=== PATIENT | male | born 1980 | race Caucasian/White ===

== ENCOUNTER 2017-09-16 11:11 | Emergency (ER) | payer OTHER ==
[~2017-09-16] VITALS: Ht 170.2 cm; Wt 86.2 kg
[~2017-09-16 11:11] MED LIST: ALBU90OI; ALBU90OI6 INH; ATEN25 PO; BUPR150ER PO; CEPH500 PO; CHLO25 PO; CLIN300 PO; CLON1 PO; CRUTCH4 USE; Cleocin HCl300 MG PO; DIVA500ER PO; ERYT.5TO OD; HYDACE5 PO; HYDHCL25 PO; IBUP800 PO; LEVSOD125 PO; LISI20 PO; Lisinopril2.5 MG; METPRE4DP PO; Norco 5-325 Ta1 EACH PO; OXYACE5T PO; PENVK500 PO; PRAZ1 PO; PROM25 PO; RXTRAM50 PO; SERT100 PO; SULTRIDS PO; TRAM50 PO; UNKNOWN THYROID MED; ZESTORETIC 20-121 EA; ZESTORETIC 20-121 EA PO
[2017-09-16 12:35] LABS: BASOPHILS ABSOLUTE AUTO 0.08 K/mm3 (0.00-0.23); BASOPHILS PERCENT AUTO 1 % (0-2); EOSINOPHILS ABSOLUTE AUTO 0.15 K/mm3 (0.00-0.68); EOSINOPHILS PERCENT AUTO 2 % (0-6); Hematocrit 47.2 % (37.0-53.0); Hemoglobin 16.3 g/dL (13.5-17.5); IMMATURE GRAN ABSOLUTE AUTO 0.04 K/mm3 (0.00-0.10); IMMATURE GRAN PERCENT AUTO 1 % (0-1); LYMPHOCYTES ABSOLUTE AUTO 1.28 K/mm3 (0.84-5.20); LYMPHOCYTES PERCENT AUTO 17 % (21-46); MONOCYTES ABSOLUTE AUTO 0.94 K/mm3 (0.16-1.47); MONOCYTES PERCENT AUTO 12 % (4-13); Mean Corpuscular HGB 32.2 pg (26.0-34.0); Mean Corpuscular HGB Conc 34.5 g/dL (31.5-36.5); Mean Corpuscular Volume 93 fL (80-100); Mean Platelet Volume 10.2 fL (9.1-12.4); NEUTROPHILS ABSOLUTE AUTO 5.23 K/mm3 (1.96-9.15); NEUTROPHILS PERCENT AUTO 68 % (41-73); Platelet Count 266 K/mm3 (150-400); RDW Coefficient Variation 12.3 % (11.7-14.2); RDW Standard Deviation 42.5 fL (35.1-46.3); Red Blood Cell Count 5.06 M/mm3 (4.30-5.90); White Blood Cell Count 7.72 K/mm3 (4.00-11.30)
[2017-09-16 12:50] LABS: Alanine Aminotransfer (ALT/SGP 62 U/L (12-78); Albumin, Blood 4.4 g/dL (3.4-5.0); Albumin/Globulin Ratio 1.2 (0.8-1.8); Alk Phos 99 U/L (50-136); Anion Gap 10 mmol/L (6-16); Aspartate Aminotrans (AST/SGOT 43 U/L (12-37); Bilirubin, Total 0.7 mg/dL (0.1-1.0); Blood Urea Nitrogen 8 mg/dL (8-24); Bun/Creatinine Ratio 12.2 (12.0-20.0); CO2, Blood 25 mmol/L (21-32); Calcium, Blood 9.3 mg/dL (8.5-10.1); Chloride, Blood 98 mmol/L (98-108); Creatinine, Blood 0.65 mg/dL (0.60-1.20); Ethanol (Alcohol), Blood, Med <3 mg/dL; Globulin, Blood 3.7 g/dL (2.2-4.0); Glomerular Filtration Rate >60 (60-); Glucose, Blood 99 mg/dL (70-99); Potassium, Blood 4.1 mmol/L (3.5-5.5); Sodium, Blood 133 mmol/L (136-145); Total Protein, Blood 8.1 g/dL (6.4-8.2)
[2017-09-16 13:13] LABS: Source, Urine Clean Catch
[2017-09-16 13:16] LABS: Appearance, Urine Clear (Clear); Blood, Urine Neg (Neg); Color, Urine Amber (P-Yellow); Glucose Qualitative, Urine Neg (Neg); Ketones, Urine 3+ (Neg); Leukocyte Esterase, Urine 1+ (Neg); Nitrite, Urine Neg (Neg); Protein, Urine Neg (Neg); Urobilinogen, Urine 2+ (Normal)
[2017-09-16 13:21] LABS: Bilirubin, Urine 1+ (Neg); Red Blood Cells, Urine 0-2 /hpf (0-2); Squamous Epithelial Cells Few /hpf (Few)
[2017-09-16 13:22] LABS: Bacteria Few /hpf
[2017-09-16] MEDS ORDERED: Klonopin1 MG PO (13:46)
== END 2017-09-16 14:12 | disposition home or self-care (01) ==
LOC: ER 11:11
PROVIDERS: Emergency Medicine
DX: S91.311D Laceration without foreign body, right foot, subsequent encounter (principal); F17.210 Nicotine dependence, cigarettes, uncomplicated; Z59.0 Homelessness; W26.8XXA Contact with other sharp object(s), not elsewhere classified, initial encounter
CPT/HCPCS: 36415; 80053; 81001; 83690; 85025; 87086; 90714; 96372; 99283; G0480

== ENCOUNTER 2018-04-04 12:39 | Day surgery (SDC) | payer OTHER ==
[~2018-04-04 12:39] MED LIST changes: +Flagyl500 MG PO; +Klonopin1 MG PO; +Veetids 500500 MG PO
[2018-04-04] MEDS ORDERED: CLON1 PO (16:05)
== END 2018-04-04 16:25 | disposition home or self-care (01) ==
LOC: ATC 12:39
DX: K04.7 Periapical abscess without sinus (principal); Z88.8 Allergy status to other drugs, medicaments and biological substances
CPT/HCPCS: 96365

== ENCOUNTER 2018-04-05 00:14 | Day surgery (SDC) | payer OTHER | END 2018-04-05 22:56 | disposition home or self-care (01) | LOC: ATC 00:14 | DX: K04.7 Periapical abscess without sinus (principal); I10 Essential (primary) hypertension | CPT/HCPCS: 96365 ==

== ENCOUNTER 2018-04-06 00:17 | Day surgery (SDC) | payer OTHER | END 2018-04-06 17:23 | disposition home or self-care (01) | LOC: ATC 00:17 | DX: K04.7 Periapical abscess without sinus (principal) | CPT/HCPCS: 96365 ==

== ENCOUNTER 2018-04-07 08:52 | Day surgery (SDC) | payer OTHER | END 2018-04-07 09:34 | disposition home or self-care (01) | LOC: ATC 08:52 | DX: K04.7 Periapical abscess without sinus (principal) | CPT/HCPCS: 96365 ==